=== PATIENT | male | born 1955 | race Caucasian/White ===

== ENCOUNTER 2017-01-23 12:37 | Emergency (ER) | payer OTHER ==
[~2017-01-23] VITALS: Ht 172.7 cm; Wt 104.3 kg
[2017-01-23] MEDS ORDERED: LISINOPRIL10 M1 PO (12:57)
[2017-01-23] MEDS ORDERED: ATORVASTATIN CA10 M1 PO (12:57)
[2017-01-23] MEDS ORDERED: JENTADUETO 2.51 EAC2 PO (12:58)
[2017-01-23] MEDS ORDERED: PIOGLITAZONE HC30 M1 PO (12:58)
[2017-01-23] MEDS ORDERED: GLIMEPIRIDE4 M1 PO (12:59)
[2017-01-23 13:49] LABS: ABSOLUTE BASOPHIL COUNT 0 /CUMM (0.0-0.2); ABSOLUTE EOSINOPHIL COUNT 0.1 /CUMM (0.0-0.7); ABSOLUTE GRANULOCYTE CT 5.1 /CUMM (1.4-6.5); ABSOLUTE LYMPH COUNT 2.1 /CUMM (1.2-3.4); ABSOLUTE MONOCYTE COUNT 0.4 /CUMM (0.10-0.60); BASOPHIL % 0.4 % (0.0-2.0); HEMATOCRIT 39.9 % (42-52); MEAN CORPUSCULAR HGB 29.9 PG (27.0-31.0); MEAN CORPUSCULAR HGB CONC 33.5 G/DL (33.0-37.0); MEAN CORPUSCULAR VOLUME 89.4 FL (80.0-94.0); MEAN PLATELET VOLUME 6.9 FL (7.4-10.4); PLATELET COUNT 321 /CUMM (130-400); RBC DISTRIBUTION WIDTH 12.9 % (11.5-14.5); RED BLOOD CELL CT 4.46 /CUMM (4.70-6.10); WHITE BLOOD CELL COUNT 7.7 /CUMM (4.8-10.8)
--- NOTE | 2017-01-23 14:01 | RADIOLOGY REPORT ---
EXAMINATION: XR CHEST CLINICAL INFORMATION: 61-year-old male patient with nonproductive cough and chest tightness. COMPARISON: None TECHNIQUE: PA and lateral erect views of the chest. FINDINGS: No significant abnormality is noted involving the heart, lungs, mediastinum, bony thorax or soft tissues. IMPRESSION: No active disease in the chest.
--- NOTE | 2017-01-23 14:41 | ED GENERAL ADULT ---
History of Present Illness General Chief Complaint: General Adult Stated Complaint: CHEST PAIN, SOB, DIZZY Source: patient Exam Limitations: no limitations Vital Signs & Intake/Output Vital Signs & Intake/Output Vital Signs Date Time Temp Pulse Resp B/P B/P Pulse O2 O2 Flow FiO2 Mean Ox Delivery Rate 01/23 1730 96.2 77 18 155/72 100 Room Air 01/23 1518 90 18 128/67 98 Room Air 01/23 1453 98 01/23 1247 96.6 88 16 117/75 98 Room Air Allergies Coded Allergies: NO KNOWN ALLERGIES (09/27/13) Reconcile Medications Albuterol Sulfate (Proventil Hfa) 90 MCG HFA.AER.AD 2 PUF INH Q4 PRN chest tightness Atorvastatin Calcium 10 MG TABLET 1 TAB PO DAILY CHOLESTEROL (Reported) Glimepiride 4 MG TABLET 1 TAB PO QPM DIABETES (Reported) Lidocaine (Lidoderm) 5 % ADH..PATCH 1 PAT TOP DAILY PRN back pain may wear up to 12 hours Linagliptin/Metformin HCl (Jentadueto 2.5 MG-1000 MG Tab) 2.5 MG-1,000 MG TABLET 1 TAB PO QPM DIABETES (Reported) Lisinopril 10 MG TABLET 1 TAB PO QPM HEART (Reported) Pioglitazone HCl 30 MG TABLET 0.5 TAB PO DAILY DIABETES (Reported) Triage Note: 61 Y/0 MALE C/O CHEST "TIGHTNESS" AND SOB X 3 DAYS. STATES HE HAS BEEN COUGHING X 6 MONTHS, HAS NOT NOTED A COLOR TO IT. STATES HE FEELS "CONGESTED". REPORTS NORMAL APPETITE/PO INTAKE. DENIES BEING IN THE HEAT OVER THE LAST FEW DAYS. STATES HE HAS BEEN DRINKING LOTS OF PO FLUIDS AND URINATING WITHOUT DIFFICULTY. EKG COMPLETED AND SIGNED BY DR CURTIS. STATES HE ALSO FEELS "LIGHTHEADED" FINGERSTICK - 149 Triage Nurses Notes Reviewed? yes HPI: 61-year-old male with a history of diabetes presenting with chest tightening, shortness of breath, and lightheadedness 3 days. Symptoms have been proceeded by nonproductive cough and clear rhinorrhea 6 months. Has been seen by his PMD and was given Flonase and Claritin with good improvement. Denies chest pain, nausea, vomiting, diaphoresis, pain to the arm/jaw/back. Denies current or former tobacco use. Denies any under lung disease such as asthma. Patient denies leg swelling, recent travel or surgeries, hormone use, personal or family history of blood clots. (NADIR TAI PA-C) Past History Travel History Traveled to [place] past 21 day No Medical History Any Pertinent Medical History? see below for history Neurological: NONE EENT: NONE Cardiovascular: NONE Respiratory: NONE Gastrointestinal: NONE Hepatic: NONE Renal: NONE Musculoskeletal: NONE Psychiatric: NONE Endocrine: diabetes Blood Disorders: NONE Cancer(s): NONE MICRO PALEONTOLOGIST/Reproductive: NONE Surgical History Surgical History: non-contributory Psychosocial History What is your primary language Kyrgyz Tobacco Use: Never used Family History Hx Contributory? No (NADIR TAI PA-C) Review of Systems Review of Systems Constitutional: Reports: no symptoms. EENTM: Reports: nasal congestion. Respiratory: Reports: cough, short of breath. Denies: hemoptysis, sputum production, wheezing. Cardiovascular: Reports: see HPI. Denies: chest pain, edema, orthopena, palpitations, peripheral edema, syncope. GI: Reports: no symptoms. Genitourinary: Reports: no symptoms. Musculoskeletal: Reports: no symptoms. Neurological/Psychological: Reports: no symptoms. (NADIR TAI PA-C) Physical Exam Physical Exam General Appearance: well developed/nourished, no apparent distress, alert, awake , comfortable Head: atraumatic Ears, Nose, Throat: normal ENT inspection Respiratory: chest non-tender, no respiratory distress, wheezing (bilaterally) Cardiovascular: regular rate/rhythm, normal peripheral pulses Gastrointestinal: soft, non-tender Extremities: no edema Neurologic/Psych: awake, alert, oriented x 3, normal mood/affect Core Measures ACS in differential dx? Yes CVA/TIA Diagnosis: No Severe Sepsis Present: No Septic Shock Present: No (NADIR TAI PA-C) Progress Differential Diagnoses I considered the following diagnoses in my evaluation of the patient: [URI versus bronchitis versus pneumonia versus PE versus reactive airway disease versus pleural effusion versus pleurisy versus MA versus angina] Plan of Care: Orders Procedure Date/time Status EKG 01/23 1654 Active TROPONIN LEVEL 01/23 1644 Complete TROPONIN LEVEL 01/23 1314 Complete PHOSPHORUS 01/23 1314 Complete MAGNESIUM 01/23 1314 Complete COMPREHENSIVE METABOLIC PANEL 01/23 1314 Complete CBC WITHOUT DIFFERENTIAL 01/23 1314 Complete EKG 01/23 1238 Active Laboratory Tests 01/23/17 1706: Troponin I < 0.01 01/23/17 1338: Anion Gap 9, Estimated GFR > 60, BUN/Creatinine Ratio 18.9, Glucose 125 H, Calcium 9.8, Phosphorus 3.4, Magnesium 1.7, Total Bilirubin 0.5, AST 22, ALT 43, Alkaline Phosphatase 50, Troponin I < 0.01, Total Protein 6.8, Albumin 4.1, Globulin 2.7, Albumin/Globulin Ratio 1.5, CBC w Diff NO MAN DIFF REQ, RBC 4.46 L, MCV 89.4, MCH 29.9, RDW 12.9, MPV 6.9 L, Gran % 66.0, Lymphocytes % 27.4, Monocytes % 5.2, Eosinophils % 1.0, Basophils % 0.4, Absolute Granulocytes 5.1, Absolute Lymphocytes 2.1, Absolute Monocytes 0.4, Absolute Eosinophils 0.1, Absolute Basophils 0, PUBS MCHC 33.5 EKG showed normal sinus rhythm, troponin negative. Chest x-ray unremarkable. Labs unremarkable. Patient states that his shortness of breath and chest tightness improved after DuoNeb. Suspect that there is some underlying reactive airway disease that may be triggered by a viral source given that the patient had wheezing on exam and improvement with DuoNeb, but with an unremarkable chest x-ray. Will discharge home with Rx albuterol, instructed to follow up with his PMD in 2 days for reevaluation. (ABIDA HOLCOMB,NADIR) Initial ED EKG: normal axis, rhythm (sinus), rate (81), no ST T wave changes (ABIDA HOLCOMB,NADIR) Departure Departure Disposition: HOME OR SELF CARE Condition: Stable Clinical Impression Primary Impression: Chest tightness Referrals: JASKARAN FONG,M. JOEL (PCP/Family) Additional Instructions: Use 2 puffs of albuterol every 4-6 hours as needed for chest tightness. Apply 1 Lidoderm patch to sore areas on her back once daily as needed. Follow-up with for reevaluation. Return to the ED for any normal worsening symptoms. Departure Forms: Customer Survey General Discharge Information Prescriptions: Current Visit Scripts Albuterol Sulfate (Proventil Hfa) 2 PUF INH Q4 PRN chest tightness #1 INHAL Lidocaine (Lidoderm) 1 PAT TOP DAILY PRN back pain #30 PAT may wear up to 12 hours (ABIDA HOLCOMB,NADIR) PA/POULTRY RAISER Co-Sign Statement Statement: ED Attending supervision documentation- [] I saw and evaluated the patient. I have also reviewed all the pertinent lab results and diagnostic results. I agree with the findings and the plan of care as documented in the PA's/POULTRY RAISER's documentation. [X] I have reviewed the ED Record and agree with the PA's/POULTRY RAISER's documentation. [] Additions or exceptions (if any) to the PAs/POULTRY RAISER's note and plan are summarized below: [] (KIRSTEN FONG,YIFAN) Critical Care Note Critical Care Note Critical Care Time: non-applicable (ABIDA HOLCOMB,NADIR)
[2017-01-23 17:30] VITALS: BP 155/72
[2017-01-23] MEDS ORDERED: PROVENTIL HFA6.7 GM INH (18:25)
[2017-01-23] MEDS ORDERED: LIDODERM1 EACH TOP (18:25)
== END 2017-01-23 18:39 ==
LOC: ERH 12:37
PROVIDERS: Physician Assistant
DX: R07.89 Other chest pain (principal)
CPT/HCPCS: 1263; 93005; 93010